=== PATIENT | female | born 1950 | race Caucasian/White ===

== ENCOUNTER 2017-05-25 11:26 | Inpatient (IN) | payer OTHER ==
[~2017-05-25] VITALS: Ht 152.4 cm; Wt 63.0 kg
[2017-06-07] MEDS ORDERED: ZOLOFT100 MG PO (09:03)
[2017-06-07] MEDS ORDERED: DESYREL PO (09:04)
[2017-06-07] MEDS ORDERED: SEROQUEL300 MG PO (09:04)
[2017-06-07] MEDS ORDERED: CLONAZEPAM2 MG PO (09:05)
[2017-06-07] MEDS ORDERED: GLUCOPHAGE XR500 MG PO (09:05)
[2017-06-07] MEDS ORDERED: AMARYL PO (09:06)
[2017-06-07] MEDS ORDERED: VASOTEC2.5 MG PO (09:06)
[2017-06-07] MEDS ORDERED: ZOCOR20 MG PO (09:06)
[2017-06-15] MEDS ORDERED: CEFADROXIL500 MG PO (08:02)
[2017-06-15] MEDS ORDERED: XARELTO10 MG PO (08:02)
[2017-06-15] MEDS ORDERED: PERCOCET 2.5-31 EACH PO (08:02)
== END 2017-06-15 13:02 | disposition home or self-care (01) | DRG 470 ==
LOC: SURH 06-12 06:24 → O/R 06-12 06:24 → SURH 06-12 07:00
PROVIDERS: Orthopaedic Surgery
PROC: 0SRC0J9 Replacement of Right Knee Joint with Synthetic Substitute, Cemented, Open Approach (ICD-10-PCS; principal; 2017-06-12 07:00)
PROC: 30233N1 Transfusion of Nonautologous Red Blood Cells into Peripheral Vein, Percutaneous Approach (ICD-10-PCS; 2017-06-13)
DX: M17.11 Unilateral primary osteoarthritis, right knee (principal); M80.00XA Age-related osteoporosis with current pathological fracture, unspecified site, initial encounter for fracture; D62 Acute posthemorrhagic anemia; E78.2 Mixed hyperlipidemia; K29.70 Gastritis, unspecified, without bleeding; F32.89 Other specified depressive episodes; I12.9 Hypertensive chronic kidney disease with stage 1 through stage 4 chronic kidney disease, or unspecified chronic kidney disease; E11.22 Type 2 diabetes mellitus with diabetic chronic kidney disease; N18.9 Chronic kidney disease, unspecified

== ENCOUNTER 2020-09-28 09:45 | Inpatient (IN) | payer OTHER ==
[~2020-09-28] VITALS: Ht 152.4 cm; Wt 65.8 kg
[~2020-09-28 09:45] MED LIST: AMARYL PO; CEFADROXIL500 MG PO; CLONAZEPAM2 MG PO; DESYREL PO; GLUCOPHAGE XR500 MG PO; PERCOCET 2.5-31 EACH PO; SEROQUEL300 MG PO; VASOTEC2.5 MG PO; XARELTO10 MG PO; ZOCOR20 MG PO; ZOLOFT100 MG PO
[2020-09-28] MEDS ORDERED: NAMENDA PO (12:58)
[2020-09-28] MEDS ORDERED: [UNRECOGNIZED DRUG - OTHER] PO (12:59)
[2020-09-28] MEDS ORDERED: LANTUS SOL100 UNIT/1 (14:39)
[2020-10-06] MEDS ORDERED: ATORVASTATIN CA20 MG (08:43)
[2020-10-06] MEDS ORDERED: GABAPENTIN300 M2 (08:48)
[2020-10-06] MEDS ORDERED: DONEPEZIL HCL10 MG (08:49)
[2020-10-06] MEDS ORDERED: OMEPRAZOLE20 MG (08:49)
[2020-10-06] MEDS ORDERED: ENALAPRIL MALEAT5 MG (08:49)
[2020-10-06] MEDS ORDERED: DULOXETINE HCL30 MG (08:50)
[2020-10-06] MEDS ORDERED: INSULIN SYRING (08:50)
[2020-10-06] MEDS ORDERED: OFLOXACIN5 ML (08:50)
[2020-10-06] MEDS ORDERED: GLIMEPIRIDE4 M1 (08:50)
[2020-10-06] MEDS ORDERED: TRAZODONE HCL150 MG (08:50)
[2020-10-06] MEDS ORDERED: MEMANTINE HCL10 MG (08:51)
[2020-10-06] MEDS ORDERED: SERTRALINE HCL100 MG (08:51)
[2020-10-06] MEDS ORDERED: PREDNISOLONE ACE5 ML (08:51)
[2020-10-07] MEDS ORDERED: PERCOCET 5-3251 EACH PO (13:16)
[2020-10-07] MEDS ORDERED: DUI500 PO (13:16)
[2020-10-07] MEDS ORDERED: ELIQUIS2.5 MG PO (13:16)
== END 2020-10-11 16:52 | DRG 470 ==
LOC: SURG 10-05 06:50 → O/R 10-05 06:50 → SURH 10-05 09:45 → SURG 10-05 13:08 → SURH 10-05 16:00 → O/R 10-07 15:32 → SURG 10-07 15:56
PROVIDERS: ADMIT Orthopaedic Surgery; ATTEND Orthopaedic Surgery
PROC: 3E0F7SF Introduction of Other Gas into Respiratory Tract, Via Natural or Artificial Opening (ICD-10-PCS; 2020-10-05)
PROC: 0SRD0J9 Replacement of Left Knee Joint with Synthetic Substitute, Cemented, Open Approach (ICD-10-PCS; principal; 2020-10-05 16:00)
PROC: 30233N1 Transfusion of Nonautologous Red Blood Cells into Peripheral Vein, Percutaneous Approach (ICD-10-PCS; 2020-10-06)
DX: M17.12 Unilateral primary osteoarthritis, left knee (principal); D62 Acute posthemorrhagic anemia; G30.8 Other Alzheimer's disease; F02.80 Dementia in other diseases classified elsewhere, unspecified severity, without behavioral disturbance, psychotic disturbance, mood disturbance, and anxiety; F32.9 Major depressive disorder, single episode, unspecified; E11.22 Type 2 diabetes mellitus with diabetic chronic kidney disease; I12.9 Hypertensive chronic kidney disease with stage 1 through stage 4 chronic kidney disease, or unspecified chronic kidney disease; N18.9 Chronic kidney disease, unspecified; Z20.822 Contact with and (suspected) exposure to COVID-19